=== PATIENT | male | born 1930 | race Caucasian/White ===

== ENCOUNTER 2017-09-18 15:38 | Observation (INO) | payer MEDICARE, BC ==
[2017-09-18] MEDS: Sodium Chloride 0.9% 1000 ML 1,000 ML IV SCH ×2 (17:23→18:30)
[2017-09-18 17:39] LABS: Mean Platelet Volume 12.4 fl (6-9.5); Platelet Count 217 K/mm3 (150-450); Red Cell Distribution Width 16.1 % (11.5-14.0); White Blood Count 8.1 K/mm3 (4.0-10.5)
[2017-09-18 18:07] LABS: ANION GAP 16.5 MEQ/L (5-15); Carbon Dioxide 25.6 mEq/L (21-32); Potassium 4.3 mEq/L (3.5-5.1)
[2017-09-18] MEDS ORDERED: Sodium Chloride 0.9% 1000 ML 1,000 ML IV SCH (19:00)
[2017-09-18] MEDS ORDERED: Nitrostat 0.4 MG Tablet SL PRN (20:17)
[2017-09-18] MEDS ORDERED: ZOLOFT 50 MG TABLET PO SCH (22:00)
[2017-09-18] MEDS ORDERED: ELIQUIS PO SCH (22:00)
[2017-09-19 04:17] VITALS: PULSE 60
[2017-09-19 06:40] LABS: ANION GAP 14.5 MEQ/L (5-15); Carbon Dioxide 25.7 mEq/L (21-32); Potassium 4.2 mEq/L (3.5-5.1)
[2017-09-19 08:10] VITALS: BP 107/57; O2SAT 94
--- NOTE | 2017-09-19 08:16 | PCM.SSS ---
History of Present Illness - Chief Complaint Chief Complaint: dehydration History of Present Illness: is a 87 year old male patient with chronic kidney disease who normally sees Dr Kennedy, he was seen by Dr Arguelles yesterday as Dr Kennedy is out of town. He desired to direct admit him for some gentle hydration and hold his bumex due to dehydration and acute worse chronic kidney disease stage IV. The patient sees Dr Hawkins, Dionne admitted as service physician as a courtesy to nephrology. Bill reports he feels well today, no pain or concerns overnight. - Review of Systems Constitutional: No Fever, No Chills Respiratory: No Cough, No Short Of Breath Cardiac: No Chest Pain, No Edema, No Syncope Abdominal/Gastrointestinal: No Abdominal Pain, No Nausea, No Vomiting, No Diarrhea Skin: No Rash All Other Systems: Reviewed and Negative Medications & Allergies Home Medications: Home Medication List Multivit,Ther Iron,Ca,FA & Min [Therapeutic Vit-Mineral Tab] 1 tab PO DAILY [History Confirmed 09/18/17] Polyethylene Glycol 3350 17 gm [Miralax Powder 17GM PACKET] 17 gm PO DAILY [History Confirmed 09/18/17] Esomeprazole Magnesium [Nexium] 40 mg PO DAILY 04/15/14 [History Confirmed 09/18] Ferrous Sulfate 325 mg [Feosol 325 mg] 325 mg PO HS 04/15/14 [History Confirmed 09/18/17] Apixaban [Eliquis] 2.5 mg PO HS 09/18/17 [History Confirmed 09/18/17] Metolazone 2.5 mg [Zaroxolyn 2.5 MG] 2.5 mg PO DAILY 09/18/17 [History Confirmed 09/18/17] Nadolol 20 mg [Corgard 20 MG] 40 mg PO DAILY 09/18/17 [History Confirmed ] Nitroglycerin 0.4 mg Tablet [Nitrostat 0.4 MG Tablet] 0.4 mg SL Q5MIN PRN MR X 3 PRN 09/18/17 [History Confirmed 09/18/17] Sertraline HCl 50 mg PO HS 09/18/17 [History Confirmed 09/18/17] Spironolactone 50 mg PO DAILY 09/18/17 [History Confirmed 09/18/17] Tamsulosin HCl 1 cap PO DAILY 09/18/17 [History Confirmed 09/18/17] Bumetanide 1 mg [Bumex 1 mg] 1 mg PO BID #60 tablet 09/19/17 [Rx] Allergies/Adverse Reactions: Allergies Allergy/AdvReac Type Severity Reaction Status Date / Time niacin Allergy Mild Verified 04/15/14 20:49 [From Niaspan Extended-Release] pravastatin sodium Allergy Mild Verified 04/15/14 20:49 [From Pravachol] simvastatin [From Zocor] Allergy Mild Verified 04/15/14 20:49 Sulfa (Sulfonamide Allergy Mild Verified 04/15/14 20:49 Antibiotics) atorvastatin [From Lipitor] AdvReac Intermediate Verified 09/18/17 19:29 - Past Medical History Past Medical History: Yes Neurological History: Dementia, Stroke ENT History: No Pertinent History Cardiac History: Arrhythmia, Hypertension Respiratory History: No Pertinent History Endocrine Medical History: Liver Disease Musculoskelatal History: Arthritis GI Medical History: Cirrhosis, GERD History: Bladder Cancer Pyscho-Social History: Anxiety Male Reproductive Disorders: Prostate Problems Comment: childhood jaundice - Past Surgical History Past Surgical History: Yes Neuro Surgical History: No Pertinent History Cardiac History: No Pertinent History Respiratory Surgery: No Pertinent History GI Surgical History: Appendectomy, Hernia Repair Genitourinary Surgical Hx: No Pertinent History Musculskeletal Surgical Hx: Joint Replacement Other Surgical History: L hip and L knee replacement - Social History Smoking Status: Former smoker Exposure to second hand smoke: No Alcohol: None Drug Use: none - Physical Exam Vital Signs: Vital Signs - 24 hr Temp Pulse Resp BP Pulse Ox 09/19/17 08:00 97.6 F 60 18 107/57 94 L 09/19/17 04:00 98.2 F 60 14 116/56 96 09/19/17 00:00 97.9 F 62 16 106/59 97 09/18/17 20:34 98.0 F 67 15 123/66 98 09/18/17 17:49 98.4 F 60 20 96/55 96 09/18/17 17:00 98.4 F 60 96/55 09/18/17 16:44 98.4 F 60 18 96/55 96 General Appearance: no apparent distress Neurologic Exam: alert Respiratory Exam: normal breath sounds, lungs clear, No respiratory distress Cardiovascular Exam: regular rate/rhythm, normal heart sounds, normal peripheral pulses Gastrointestinal/Abdomen Exam: soft, normal bowel sounds, No tenderness, No mass Extremity Exam: normal inspection, normal range of motion, pelvis stable Skin Exam: normal color, warm, dry, No rash Results - Labs Lab/Micro Results: Lab Results-Last 24 Hours 09/18/17 09/18/17 09/18/17 Range/Units 17:36 17:36 20:30 WBC 8.1 (4.0-10.5) K/mm3 RBC 4.00 L (4.1-5.6) M/mm3 Hgb 11.6 L (12.5-18.0) gm/dl Hct 36.0 L (42-50) % MCV 90.0 (78-100) fl MCH 29.0 (26-32) pg MCHC 32.2 (32-36) g/dl RDW 16.1 H (11.5-14.0) % Plt Count 217 (150-450) K/mm3 MPV 12.4 H (6-9.5) fl Sodium 136 (136-145) mEq/L Potassium 4.3 (3.5-5.1) mEq/L Chloride 98 (98-107) mEq/L Carbon Dioxide 25.6 (21-32) mEq/L Anion Gap 16.5 H (5-15) MEQ/L BUN 105 H (9-20) mg/dL Creatinine 4.13 H (0.55-1.30) mg/dl Estimated GFR 15 ML/MIN Glucose 120 H (70-110) MG/DL Calcium 9.2 (8.5-10.1) mg/dL Ur Random Creatinine 62.09 (30-125) MG/DL Urine Sodium MMOL 09/18/17 09/19/17 Range/Units 20:30 05:48 WBC (4.0-10.5) K/mm3 RBC (4.1-5.6) M/mm3 Hgb (12.5-18.0) gm/dl Hct (42-50) % MCV (78-100) fl MCH (26-32) pg MCHC (32-36) g/dl RDW (11.5-14.0) % Plt Count (150-450) K/mm3 MPV (6-9.5) fl Sodium 138 (136-145) mEq/L Potassium 4.2 (3.5-5.1) mEq/L Chloride 102 (98-107) mEq/L Carbon Dioxide 25.7 (21-32) mEq/L Anion Gap 14.5 (5-15) MEQ/L BUN 97 H (9-20) mg/dL Creatinine 3.66 H (0.55-1.30) mg/dl Estimated GFR 17 ML/MIN Glucose 97 (70-110) MG/DL Calcium 8.7 (8.5-10.1) mg/dL Ur Random Creatinine (30-125) MG/DL Urine Sodium 36.6 MMOL Assessment/Plan (1) Acute on chronic renal failure Current Visit: Yes Status: Acute Assessment & Plan: hydrated as per renal recommendation, will update with labs this am. was advised could discharge this morning but will update him with labs. shows mild improvement and patient reports he is feeling better today. Code(s): N17.9 - ACUTE KIDNEY FAILURE, UNSPECIFIED; N18.9 - CHRONIC KIDNEY DISEASE, UNSPECIFIED (2) Dehydration Current Visit: Yes Status: Acute Code(s): E86.0 - DEHYDRATION (3) Chronic kidney disease, stage 4 (severe) Current Visit: Yes Status: Acute Code(s): N18.4 - CHRONIC KIDNEY DISEASE, STAGE 4 (SEVERE) Hospital Summary - Vitals & Intake/Output Vital Signs: Vital Signs Temperature 97.6 F 09/19/17 08:00 Pulse Rate 60 09/19/17 08:00 Respiratory Rate 18 09/19/17 08:00 Blood Pressure 107/57 09/19/17 08:00 O2 Sat by Pulse Oximetry 94 L 09/19/17 08:00 Intake & Output: Intake & Output 09/16/17 09/17/17 09/18/17 09/19/17 11:59 11:59 11:59 11:59 Intake Total 1952 Output Total 500 Balance 1452 Weight 75.381 kg - Lab Result Diagrams: 09/18/17 17:36 09/19/17 05:48 Lab Results-Last 24 Hrs: Lab Results-Last 24 Hours 09/18/17 09/18/17 09/18/17 Range/Units 17:36 17:36 20:30 WBC 8.1 (4.0-10.5) K/mm3 RBC 4.00 L (4.1-5.6) M/mm3 Hgb 11.6 L (12.5-18.0) gm/dl Hct 36.0 L (42-50) % MCV 90.0 (78-100) fl MCH 29.0 (26-32) pg MCHC 32.2 (32-36) g/dl RDW 16.1 H (11.5-14.0) % Plt Count 217 (150-450) K/mm3 MPV 12.4 H (6-9.5) fl Sodium 136 (136-145) mEq/L Potassium 4.3 (3.5-5.1) mEq/L Chloride 98 (98-107) mEq/L Carbon Dioxide 25.6 (21-32) mEq/L Anion Gap 16.5 H (5-15) MEQ/L BUN 105 H (9-20) mg/dL Creatinine 4.13 H (0.55-1.30) mg/dl Estimated GFR 15 ML/MIN Glucose 120 H (70-110) MG/DL Calcium 9.2 (8.5-10.1) mg/dL Ur Random Creatinine 62.09 (30-125) MG/DL Urine Sodium MMOL 09/18/17 09/19/17 Range/Units 20:30 05:48 WBC (4.0-10.5) K/mm3 RBC (4.1-5.6) M/mm3 Hgb (12.5-18.0) gm/dl Hct (42-50) % MCV (78-100) fl MCH (26-32) pg MCHC (32-36) g/dl RDW (11.5-14.0) % Plt Count (150-450) K/mm3 MPV (6-9.5) fl Sodium 138 (136-145) mEq/L Potassium 4.2 (3.5-5.1) mEq/L Chloride 102 (98-107) mEq/L Carbon Dioxide 25.7 (21-32) mEq/L Anion Gap 14.5 (5-15) MEQ/L BUN 97 H (9-20) mg/dL Creatinine 3.66 H (0.55-1.30) mg/dl Estimated GFR 17 ML/MIN Glucose 97 (70-110) MG/DL Calcium 8.7 (8.5-10.1) mg/dL Ur Random Creatinine (30-125) MG/DL Urine Sodium 36.6 MMOL - Discharge Disposition: Home, Self-Care Condition: Stable Prescriptions: New Bumetanide 1 mg [Bumex 1 mg] 1 mg PO BID #60 tablet Continue Polyethylene Glycol 3350 17 gm [Miralax Powder 17GM PACKET] 17 gm PO DAILY Multivit,Ther Iron,Ca,FA & Min [Therapeutic Vit-Mineral Tab] 1 tab PO DAILY Ferrous Sulfate 325 mg [Feosol 325 mg] 325 mg PO HS Esomeprazole Magnesium [Nexium] 40 mg PO DAILY Tamsulosin HCl 1 cap PO DAILY Spironolactone 50 mg PO DAILY Sertraline HCl 50 mg PO HS Apixaban [Eliquis] 2.5 mg PO HS Metolazone 2.5 mg [Zaroxolyn 2.5 MG] 2.5 mg PO DAILY Nitroglycerin 0.4 mg Tablet [Nitrostat 0.4 MG Tablet] 0.4 mg SL Q5MIN PRN MR X 3 PRN PRN Reason: Chest Pain Discontinued Bumetanide [Bumetanide] 2 mg PO BID No Action Nadolol 20 mg [Corgard 20 MG] 40 mg PO DAILY Follow up with: MAURY HAWKINS [Primary Care Provider] - 1 Week
[2017-09-19] MEDS ORDERED: [UNRECOGNIZED DRUG - OTHER] PO SCH (10:00)
[2017-09-19] MEDS ORDERED: Protonix 40MG Tablet PO SCH (10:00)
[2017-09-19] MEDS ORDERED: Flomax 0.4 MG PO SCH (10:00)
[2017-09-19] MEDS ORDERED: THERAGRAN MULTIVITAMIN PO SCH (10:00)
[2017-09-19] MEDS ORDERED: Aldactone 25 MG PO SCH (10:00)
[2017-09-19] MEDS ORDERED: Zaroxolyn 2.5 MG PO SCH (10:00)
[2017-09-19] MEDS ORDERED: NADOLOL PO SCH (10:00)
[2017-09-19] MEDS ORDERED: NON-FORMULARY ITEM PO SCH (10:00)
[2017-09-19] MEDS ORDERED: Miralax Powder 17GM PACKET PO SCH (10:00)
[2017-09-19] MEDS ORDERED: NON-FORMULARY ITEM (Esomeprazole Magnesium [Nexium] 40 MG) PO SCH (10:00)
[2017-09-19] MEDS ORDERED: MULTIVIT THER IRON CA FA PO SCH (10:00)
[2017-09-19] MEDS ORDERED: ZOLOFT 50 MG TABLET PO SCH (22:00)
[2017-09-19] MEDS ORDERED: FEOSOL 325 MG PO SCH (22:00)
== END 2017-09-19 10:45 | disposition home or self-care (01) ==
LOC: MED SURG 16:41
PROVIDERS: ADMIT Family Medicine; ATTEND Family Medicine
DX: N17.9 Acute kidney failure, unspecified (principal); E86.0 Dehydration; N18.4 Chronic kidney disease, stage 4 (severe); R42 Dizziness and giddiness
CPT/HCPCS: 36415; 80048; 82570; 84300; 85027; G0378; A9270-GY

== ENCOUNTER 2018-02-21 16:48 | Emergency (ER) | payer MEDICARE, BC ==
[2018-02-21] MEDS ORDERED: Sodium Chloride 0.9% 1000 ML 1,000 ML IV STA (16:58)
[2018-02-21] MEDS ORDERED: Zofran 4 MG/2 ML VIAL IV ONE ×2 (16:59→17:48)
[2018-02-21] MEDS ORDERED: Zofran 4 MG/2 ML VIAL ONE ×3 (17:00→17:43)
[2018-02-21] MEDS ORDERED: Sodium Chloride 0.9% 1000 ML 1,000 ML ONE (17:02)
--- NOTE | 2018-02-21 17:07 | ERPHSYRPT ---
- History of Present Illness Time Seen by Provider: 02/21/18 16:58 Source: patient, family Exam Limitations: clinical condition Physician History: The patient is an 87-year-old male with his . gives the history. Yesterday they went to [place]. They were called today for a potassium level of 6.0. They went to the [facility] a few minutes ago for repeat potassium check. after the lab draw, the patient and his went to [employer]. He was sitting in the parking lot talking about the trees in the weather. He suddenly put his head back and quit talking. He then began to vomit. The patient is able to open his eyes to his name being called. We are unable to determine if he is in pain. His past medical history history is significant for cardiac pacemaker, hypertension, CHF , cirrhosis of the liver, renal failure, and stroke.Pt is DNR per who is POA. Timing/Duration: today, hour(s) (1/2), sudden Severity: severe Modifying Factors: Improves With: nothing Associated Symptoms: nausea, vomiting, other (mental status change) Allergies/Adverse Reactions: niacin [From Niaspan Extended-Release] Allergy (Mild, Verified 04/15/14 20:49) pravastatin sodium [From Pravachol] Allergy (Mild, Verified 04/15/14 20:49) simvastatin [From Zocor] Allergy (Mild, Verified 04/15/14 20:49) Sulfa (Sulfonamide Antibiotics) Allergy (Mild, Verified 04/15/14 20:49) atorvastatin [From Lipitor] Adverse Reaction (Intermediate, Verified 09/18/17 19 :29) Home Medications: Multivit,Ther Iron,Ca,FA & Min [Therapeutic Vit-Mineral Tab] 1 tab PO DAILY [History] Polyethylene Glycol 3350 17 gm [Miralax Powder 17GM PACKET] 17 gm PO DAILY [History] Esomeprazole Magnesium [Nexium] 40 mg PO DAILY 04/15/14 [History] Ferrous Sulfate 325 mg [Feosol 325 mg] 325 mg PO HS 04/15/14 [History] Apixaban [Eliquis] 2.5 mg PO HS 09/18/17 [History] Metolazone 2.5 mg [Zaroxolyn 2.5 MG] 2.5 mg PO DAILY 09/18/17 [History] Nadolol 20 mg [Corgard 20 MG] 20 mg PO DAILY 09/18/17 [History] Nitroglycerin 0.4 mg Tablet [Nitrostat 0.4 MG Tablet] 0.4 mg SL Q5MIN PRN MR X 3 PRN 09/18/17 [History] Sertraline HCl 50 mg PO HS 09/18/17 [History] Spironolactone 50 mg PO DAILY 09/18/17 [History] Tamsulosin HCl 1 cap PO DAILY 09/18/17 [History] Hx Tetanus, Diphtheria Vaccination/Date Given: (unknown) Hx Influenza Vaccination/Date Given: Yes Hx Pneumococcal Vaccination/Date Given: Yes - Review of Systems Constitutional: No Fever, No Chills Eyes: No Symptoms Ears, Nose, & Throat: No Symptoms Respiratory: No Cough, No Dyspnea Cardiac: No Chest Pain, No Edema, No Syncope Abdominal/Gastrointestinal: Nausea, Vomiting Genitourinary Symptoms: No Dysuria Musculoskeletal: No Back Pain, No Neck Pain Skin: No Rash Neurological: Speech Changes, Other (mental status changes) Psychological: No Symptoms Endocrine: No Symptoms Hematologic/Lymphatic: No Symptoms Immunological/Allergic: No Symptoms All Other Systems: Reviewed and Negative - Past Medical History Pertinent Past Medical History: Yes Neurological History: Dementia, Stroke ENT History: No Pertinent History Cardiac History: Arrhythmia, Hypertension Respiratory History: No Pertinent History Endocrine Medical History: Liver Disease Musculoskeletal History: Arthritis GI Medical History: Cirrhosis, GERD History: Bladder Cancer Psycho-Social History: Anxiety Male Reproductive Disorders: Prostate Problems Other Medical History: childhood jaundice - Past Surgical History Past Surgical History: Yes Neuro Surgical History: No Pertinent History Cardiac: No Pertinent History Respiratory: No Pertinent History Gastrointestinal: Appendectomy, Hernia Repair Genitourinary: No Pertinent History Musculoskeletal: Joint Replacement Other Surgical History: L hip and L knee replacement - Social History Smoking Status: Former smoker Exposure to second hand smoke: No Drug Use: none Patient Lives Alone: No - Nursing Vital Signs Nursing Vital Signs: Initial Vital Signs Pulse Rate 60 02/21/18 16:49 Respiratory Rate 20 02/21/18 16:49 Blood Pressure 115/65 02/21/18 16:49 O2 Sat by Pulse Oximetry 94 L 02/21/18 16:49 Pain Scale Pain Intensity 0 - Physical Exam General Appearance: severe distress, thin Eye Exam: PERRL/EOMI, eyes nml inspection Ears, Nose, Throat Exam: dry mucous membranes Neck Exam: normal inspection, non-tender, supple, full range of motion Respiratory Exam: normal breath sounds, lungs clear, No respiratory distress Cardiovascular Exam: regular rate/rhythm, normal heart sounds, normal peripheral pulses Gastrointestinal/Abdomen Exam: soft, normal bowel sounds, No tenderness, No mass Rectal Exam: not done Back Exam: normal inspection, normal range of motion, No CVA tenderness, No vertebral tenderness Extremity Exam: normal inspection, normal range of motion, pelvis stable Neurologic Exam: alert, disoriented, confusion, aphasia, No motor deficits Skin Exam: normal color, warm, diaphoresis, No rash Lymphatic Exam: No adenopathy SpO2 Interpretation: normal Oxygen Delivery: Room Air - Course EKG Interpreted by Me: RATE, Other (paced rhythm) - CT Exams Head CT Interpretation: Tele-radiologist Report, No/Intracranial Hemorrhag (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 per Dr Sheets) Ordered Tests: Active Orders 24 hr Category Date Time Status Accucheck STAT Care 02/21/18 16:58 Active Manager Telemetry STAT Care 02/21/18 16:59 Active Cath for Specimen-Straight STAT Care 02/21/18 16:59 Active Cath for Specimen-Straight STAT Care 02/21/18 16:59 Active EKG-ER Only STAT Care 02/21/18 16:58 Active IV Insertion STAT Care 02/21/18 16:58 Active HEAD WITHOUT CONTRAST [CT] Stat Exams 02/21/18 16:58 Taken CBC W DIFF Stat Lab 02/21/18 17:00 Completed CMP Stat Lab 02/21/18 17:00 Completed Lactic Acid Stat Lab 02/21/18 17:07 Completed PROTIME WITH INR Stat Lab 02/21/18 17:00 Completed PTT Stat Lab 02/21/18 17:00 Completed TROPONIN Q3H Lab 02/21/18 17:00 Received TROPONIN Q3H Lab 02/21/18 20:00 Ordered TROPONIN Q3H Lab 02/21/18 23:00 Ordered TROPONIN Q3H Lab 02/22/18 02:00 Ordered TROPONIN Q3H Lab 02/22/18 05:00 Ordered UA W/RFX UR CULTURE Stat Lab 02/21/18 16:58 Uncollected Medication Summary Discontinued Medications Generic Name Dose Route Start Last Admin Trade Name Jorge A PRN Reason Stop Dose Admin Sodium Chloride 1,000 mls @ 999 mls/hr 02/21/18 16:58 02/21/18 17:19 Sodium Chloride 0.9% 1000 Ml IV 02/21/18 17:58 999 mls/hr .Q1H1M STA Administration Sodium Chloride Confirm 02/21/18 17:02 Sodium Chloride 0.9% 1000 Ml Administered 02/21/18 17:03 Dose 1,000 mls @ ud .ROUTE .STK-MED ONE Sodium Chloride Confirm 02/21/18 17:19 Sodium Chloride 0.9% 1000 Ml Administered 02/21/18 17:20 Dose 1,000 mls @ ud .ROUTE .STK-MED ONE Ondansetron HCl 4 mg 02/21/18 16:59 02/21/18 17:01 Zofran 4 Mg/2 Ml Vial IV 02/21/18 17:00 4 mg STAT ONE Administration Ondansetron HCl Confirm 02/21/18 17:00 Zofran 4 Mg/2 Ml Vial Administered 02/21/18 17:01 Dose 4 mg .ROUTE .STK-MED ONE Ondansetron HCl Confirm 02/21/18 17:02 Zofran 4 Mg/2 Ml Vial Administered 02/21/18 17:03 Dose 4 mg .ROUTE .STK-MED ONE Ondansetron HCl Confirm 02/21/18 17:43 Zofran 4 Mg/2 Ml Vial Administered 02/21/18 17:44 Dose 4 mg .ROUTE .STK-MED ONE Ondansetron HCl 4 mg 02/21/18 17:48 02/21/18 17:50 Zofran 4 Mg/2 Ml Vial IV 02/21/18 17:49 4 mg STAT ONE Administration Lab/Rad Data: Laboratory Result Diagrams 02/21/18 17:00 02/21/18 17:00 Laboratory Results 02/21/18 02/21/18 02/21/18 Range/Units 17:07 17:00 17:00 WBC (4.0-10.5) K/mm3 RBC (4.1-5.6) M/mm3 Hgb (12.5-18.0) gm/dl Hct (42-50) % MCV (78-100) fl MCH (26-32) pg MCHC (32-36) g/dl RDW (11.5-14.0) % Plt Count (150-450) K/mm3 MPV (6-9.5) fl Gran % (36.0-66.0) % Eos # (Auto) (0-0.5) Absolute Lymphs (auto) (1.0-4.6) Absolute Monos (auto) (0.0-1.3) Lymphocytes % (24.0-44.0) % Monocytes % (0.0-12.0) % Eosinophils % (0.00-5.0) % Basophils % (0.0-0.4) % Absolute Granulocytes (1.4-6.9) Basophils # (0-0.4) PT 14.7 H (8.83-12.87) SECONDS INR 1.26 (0.8-3.0) APTT 36.1 (24.1-36.1) SECONDS Sodium (137-145) mmol/L Potassium (3.5-5.1) mmol/L Chloride (98-107) mmol/L Carbon Dioxide (22-30) mmol/L Anion Gap (5-15) MEQ/L BUN (9-20) mg/dL Creatinine (0.66-1.25) mg/dL Estimated GFR ML/MIN Glucose (74-106) mg/dL Lactic Acid 1.8 (0.4-2.0) Calcium (8.4-10.2) mg/dL Total Bilirubin (0.2-1.3) mg/dL AST (17-59) U/L ALT (0-50) U/L Alkaline Phosphatase (38-126) U/L Troponin I 0.103 H* (0.000-0.034) ng/mL Serum Total Protein (6.3-8.2) g/dL Albumin (3.5-5.0) g/dL 02/21/18 02/21/18 Range/Units 17:00 17:00 WBC 9.0 (4.0-10.5) K/mm3 RBC 4.20 (4.1-5.6) M/mm3 Hgb 12.3 L (12.5-18.0) gm/dl Hct 36.4 L (42-50) % MCV 86.7 (78-100) fl MCH 29.2 (26-32) pg MCHC 33.8 (32-36) g/dl RDW 16.7 H (11.5-14.0) % Plt Count 278 (150-450) K/mm3 MPV 10.8 H (6-9.5) fl Gran % 79.0 H (36.0-66.0) % Eos # (Auto) 0.12 (0-0.5) Absolute Lymphs (auto) 1.14 (1.0-4.6) Absolute Monos (auto) 0.61 (0.0-1.3) Lymphocytes % 12.7 L (24.0-44.0) % Monocytes % 6.8 (0.0-12.0) % Eosinophils % 1.3 (0.00-5.0) % Basophils % 0.2 (0.0-0.4) % Absolute Granulocytes 7.06 H (1.4-6.9) Basophils # 0.02 (0-0.4) PT (8.83-12.87) SECONDS INR (0.8-3.0) APTT (24.1-36.1) SECONDS Sodium 136 L (137-145) mmol/L Potassium 5.9 H (3.5-5.1) mmol/L Chloride 109 H (98-107) mmol/L Carbon Dioxide 16 L (22-30) mmol/L Anion Gap 16.7 H (5-15) MEQ/L BUN 72 H (9-20) mg/dL Creatinine 3.65 H (0.66-1.25) mg/dL Estimated GFR 16.8 ML/MIN Glucose 122 H (74-106) mg/dL Lactic Acid (0.4-2.0) Calcium 8.7 (8.4-10.2) mg/dL Total Bilirubin 0.50 (0.2-1.3) mg/dL AST 24 (17-59) U/L ALT 15 (0-50) U/L Alkaline Phosphatase 87 (38-126) U/L Troponin I (0.000-0.034) ng/mL Serum Total Protein 7.3 (6.3-8.2) g/dL Albumin 3.3 L (3.5-5.0) g/dL - Progress Progress: improved Discussed with Dr.: Other (Dr Mello at [facility]) Counseled pt/family regarding: lab results, diagnosis, rad results - Departure Time of Disposition: 18:31 Departure Disposition: Transfer (Transfer to [facility] per Dr Mello, hospitalist.) Clinical Impression: Vomiting, Hyperkalemia, Chronic kidney disease, stage 4 (severe), Mental status change Condition: Stable Critical Care Time: No Referrals: AUGUST TAYLOR MD [Primary Care Provider] -
[2018-02-21 17:12] LABS: BASOPHIL % 0.2 % (0.0-0.4); Basophil (Absolute #) 0.02 (0-0.4); Eosinophil % 1.3 % (0.00-5.0); Eosinophil (Absolute #) 0.12 (0-0.5); Granulocyte Absolute (ANC) 7.06 (1.4-6.9); Hematocrit 36.4 % (42-50); Hemoglobin 12.3 gm/dl (12.5-18.0); Lymphocyte (Absolute #) 1.14 (1.0-4.6); Lymphocytes % 12.7 % (24.0-44.0); Mean Cell Volume 86.7 fl (78-100); Mean Corpuscular Hgb Concent. 33.8 g/dl (32-36); Mean Platelet Volume 10.8 fl (6-9.5); Monocyte (Absolute #) 0.61 (0.0-1.3); Monocytes % 6.8 % (0.0-12.0); Platelet Count 278 K/mm3 (150-450); Red Cell Distribution Width 16.7 % (11.5-14.0)
[2018-02-21 17:15] LABS: Mean Corpuscular Hemoglobin 29.2 pg (26-32)
[2018-02-21] MEDS ORDERED: Sodium Chloride 0.9% 1000 ML 0 ML ONE (17:19)
[2018-02-21 17:31] LABS: ALBUMIN 3.3 g/dL (3.5-5.0); ANION GAP 16.7 MEQ/L (5-15); BILIRUBIN,TOTAL 0.5 mg/dL (0.2-1.3); Calcium 8.7 mg/dL (8.4-10.2); Creatinine 1 3.65 mg/dL (0.66-1.25); Potassium 5.9 mmol/L (3.5-5.1); Total Protein 7.3 g/dL (6.3-8.2)
[2018-02-21 17:35] LABS: INR 1.26 (0.8-3.0)
[2018-02-21 17:38] LABS: PTT 36.1 SECONDS (24.1-36.1)
[2018-02-21 17:51] VITALS: PULSE 60
[2018-02-21] MEDS ORDERED: Kayexylate 15 GM/60 ML PO ONE (18:33)
[2018-02-21 19:05] VITALS: BP 112/67; O2SAT 95
--- NOTE | 2018-02-21 22:12 | XRAY ---
Indication: Mental status change. Multiple contiguous axial images obtained through the head without contrast. Comparison: None Images of the mid to inferior brain degraded by motion artifact. Large old left temporoparietal infarct. Elsewhere age-appropriate global atrophy and mild periventricular degenerative micro-ischemia. No acute intracranial hemorrhage, hydrocephalus, or mass effect. Bony calvarium intact. Visualized paranasal sinuses and mastoid air cells are clear. Impression: 1. Motion artifact. 2. Old left MCA infarct. 3. Atrophy and degenerative micro-ischemia within normal limits for patient's age. 4. No gross acute intracranial abnormalities. Comment: Preliminary interpretation was made by [facility]. No discrepancy. CTDI 68.15
== END 2018-02-21 19:26 | disposition short-term general hospital (02) ==
LOC: ED 16:48
DX: R11.2 Nausea with vomiting, unspecified (principal); E87.5 Hyperkalemia; N18.4 Chronic kidney disease, stage 4 (severe); R41.82 Altered mental status, unspecified; Z79.899 Other long term (current) drug therapy; Z95.0 Presence of cardiac pacemaker
CPT/HCPCS: 36000; 36415; 70450; 80053; 82962; 83605; 84484; 85025; 85610; 85730; 93005; 93041; 96360; 96374; 99285; J2405; A9270-GY